=== PATIENT | male | born 1970 | race Caucasian/White ===

== ENCOUNTER 2022-11-02 16:23 | Inpatient (IN) | payer MEDICAID, OTHER ==
[~2022-11-02] VITALS: Ht 172.7 cm; Wt 68.0 kg
[2022-11-02 16:56] LABS: HEMATOCRIT 39.4 % (36.7-47.1); MEAN CORPUSCULAR HEMOGLOBIN 30.1 uug (23.8-33.4); MEAN CORPUSCULAR VOLUME 90.2 fL (73.0-96.2); PLATELET COUNT (AUTO) 212 K/uL (152-348)
[2022-11-02] MEDS ORDERED: ATOR40TA PO (17:02)
[2022-11-02] MEDS ORDERED: ASPI81TA31 PO (17:02)
[2022-11-02] MEDS ORDERED: PRAS10TA5 PO (17:02)
[2022-11-02 17:07] LABS: CARBON DIOXIDE 28 mmol/L (21-32); CHLORIDE 102 mmol/L (98-107); CREATININE 1.3 mg/dL (0.6-1.3); GLUCOSE 147 mg/dL (74-106); UREA NITROGEN, BLOOD 18 mg/dL (7-18)
[2022-11-02] MEDS ORDERED: ASPIRIN 81 MG TAB.CHEW PO ONE (18:15)
[2022-11-02] MEDS ORDERED: ASPIRIN 81 MG TAB.CHEW ONE (18:30)
[2022-11-02] MEDS ORDERED: TEMAZEPAM 15 MG CAPSULE PO PRN (20:15)
[2022-11-02] MEDS ORDERED: ONDANSETRON 4 MG/2 ML VIAL IV PRN (20:15)
[2022-11-02] MEDS ORDERED: ACETAMINOPHEN 325 MG TABLET PO PRN (20:15)
[2022-11-02] MEDS ORDERED: ATORVASTATIN 40 MG TABLET PO SCH (21:00)
[2022-11-03] VITALS: BP 139/91
[2022-11-03 04:46] VITALS: BP 121/77
[2022-11-03 05:56] LABS: HEMATOCRIT 37.7 % (36.7-47.1); MEAN CORPUSCULAR VOLUME 89.2 fL (73.0-96.2); PLATELET COUNT (AUTO) 193 K/uL (152-348)
[2022-11-03] MEDS ORDERED: PANTOPRAZOLE SODIUM 40 MG TABLET.DR PO SCH (07:00)
[2022-11-03 07:20] LABS: BILIRUBIN,TOTAL 0.6 mg/dL (0.2-1.0); CREATININE 1.1 mg/dL (0.6-1.3); POTASSIUM 3.8 mmol/L (3.5-5.1); TOTAL PROTEIN, SERUM 6.4 g/dL (6.4-8.2)
[2022-11-03 07:28] LABS: THYROID STIMULATING HORMONE 5.062 mIU/mL (0.358-3.740)
[2022-11-03 07:46] LABS: MAGNESIUM 2.1 mg/dL (1.8-2.4)
[2022-11-03] MEDS ORDERED: PRASUGREL HCL 5 MG TABLET PO SCH (09:00)
[2022-11-03] MEDS ORDERED: PRASUGREL HYDROCHLORIDE PO SCH (09:00)
[2022-11-03] MEDS ORDERED: ASPIRIN 81 MG TAB.CHEW PO SCH (09:00)
[2022-11-03 12:00] VITALS: BP 115/69
== END 2022-11-03 14:45 | disposition left against medical advice (07) | DRG 198 ==
LOC: ER 16:25 → TELE3 23:07
PROVIDERS: ADMIT Internal Medicine; ATTEND Nurse Practitioner Family
DX: I24.9 Acute ischemic heart disease, unspecified (principal); E78.5 Hyperlipidemia, unspecified; I25.10 Atherosclerotic heart disease of native coronary artery without angina pectoris; I25.2 Old myocardial infarction; Z95.5 Presence of coronary angioplasty implant and graft; R73.9 Hyperglycemia, unspecified; Z79.82 Long term (current) use of aspirin; Z79.899 Other long term (current) drug therapy; Z79.02 Long term (current) use of antithrombotics/antiplatelets; Z53.29 Procedure and treatment not carried out because of patient's decision for other reasons; Z87.891 Personal history of nicotine dependence
CPT/HCPCS: 36415; 71045; 83735; 84100; 84443; 84484; 85025; 93005; G0378

== ENCOUNTER 2022-12-20 20:05 | Emergency (ER) | payer MEDICAID ==
[~2022-12-20] VITALS: Ht 172.7 cm; Wt 70.3 kg
[~2022-12-20 20:05] MED LIST: ASPI81TA31 PO; ATOR40TA PO; PRAS10TA5 PO
[2022-12-20 20:16] VITALS: O2SAT 97
[2022-12-20 20:57] LABS: HEMATOCRIT 38.6 % (36.7-47.1); MEAN CORPUSCULAR VOLUME 89.5 fL (73.0-96.2); PLATELET COUNT (AUTO) 207 K/uL (152-348)
[2022-12-20 21:05] LABS: CARBON DIOXIDE 28 mmol/L (21-32); CHLORIDE 102 mmol/L (98-107); CREATININE 1.1 mg/dL (0.6-1.3); POTASSIUM 3.7 mmol/L (3.5-5.1); UREA NITROGEN, BLOOD 25 mg/dL (7-18)
--- NOTE | 2022-12-20 21:20 | NUR ---
[facility] at bedside.
--- NOTE | 2022-12-20 21:35 | NUR ---
SUKH remains at bedside Dr. at beside as well.
--- NOTE | 2022-12-20 21:36 | NUR ---
[facility] instructions given to pt. who verbalized understanding.
--- NOTE | 2022-12-20 21:37 | NUR ---
Pt. left room with steady gait. redness still visible to left side of shoulder and face. Pt. still with c/of burning. No other discomfort reported.
== END 2022-12-20 21:44 | disposition home or self-care (01) ==
LOC: ER 20:07
DX: R07.89 Other chest pain (principal); I25.2 Old myocardial infarction; Z79.82 Long term (current) use of aspirin; Z79.899 Other long term (current) drug therapy; Y04.2XXA Assault by strike against or bumped into by another person, initial encounter; Y93.89 Activity, other specified; Y92.89 Other specified places as the place of occurrence of the external cause; Y99.8 Other external cause status
CPT/HCPCS: 36415; 83735; 84484; 85025; 93005; A4663

== ENCOUNTER 2023-05-11 10:35 | Emergency (ER) | payer MEDICAID ==
[~2023-05-11] VITALS: Ht 172.7 cm; Wt 70.3 kg
[2023-05-11 10:49] VITALS: O2SAT 97
[2023-05-11 11:43] LABS: BASOPHILS # (AUTO) 0.1 K/UL (0.0-0.2); BASOPHILS % (AUTO) 0.5 % (0.0-2.0); EOSINOPHILS # (AUTO) 0.7 K/uL (0.0-0.7); EOSINOPHILS % (AUTO) 6.8 % (0.0-7.0); HEMATOCRIT 38.8 % (36.7-47.1); HEMOGLOBIN 13.1 g/dL (12.5-16.3); LYMPHOCYTES # (AUTO) 1.7 K/uL (0.8-4.8); LYMPHOCYTES % (AUTO) 17.1 % (20.5-51.5); MEAN CORPUSCULAR HEMOGLOBIN 30.1 uug (23.8-33.4); MEAN CORPUSCULAR HGB CONC 34 g/dL (32.5-36.3); MEAN CORPUSCULAR VOLUME 89.5 fL (73.0-96.2); MONOCYTES # (AUTO) 0.9 K/uL (0.1-1.30); MONOCYTES % (AUTO) 9.2 % (0.0-11.0); NEUTROPHILS # (AUTO) 6.7 K/uL (1.8-8.9); NEUTROPHILS % (AUTO) 66.4 % (38.5-71.5); PLATELET COUNT (AUTO) 186 K/uL (152-348); RED BLOOD CELL COUNT(AUTO) 4.33 MIL/uL (4.06-5.63); RED CELL DISTRIBUTION WIDTH 13.3 % (12.1-16.2); WHITE BLOOD COUNT (AUTO) 10.1 K/uL (3.6-10.2)
[2023-05-11 11:48] LABS: DIFFERENTIAL COMMENT 1
[2023-05-11 12:02] LABS: CALCIUM 9.5 mg/dL (8.5-10.1); CARBON DIOXIDE 28 mmol/L (21-32); CHLORIDE 103 mmol/L (98-107); CREATININE 1.1 mg/dL (0.6-1.3); GLUCOSE 117 mg/dL (74-106); POTASSIUM 3.8 mmol/L (3.5-5.1); SODIUM SERUM 140 mmol/L (136-145); UREA NITROGEN, BLOOD 15 mg/dL (7-18)
[2023-05-11 12:04] LABS: ALANINE AMINOTRANSFERASE 25 U/L (16-63); ALBUMIN 3.5 g/dL (3.4-5.0); ALKALINE PHOSPHATASE 117 U/L (50-136); ASPARTATE AMINOTRANSFERASE 23 U/L (15-37); BILIRUBIN,DIRECT 0.2 mg/dL (0.0-0.2); BILIRUBIN,TOTAL 0.5 mg/dL (0.2-1.0); NT-PRO BNP 59 pg/mL (0-125); TOTAL PROTEIN, SERUM 6.8 g/dL (6.4-8.2)
[2023-05-14] MEDS ORDERED: AZIT250T13 PO (10:12)
[2023-05-14] MEDS ORDERED: BENZ-13 PO (10:12)
== END 2023-05-11 13:09 | disposition home or self-care (01) ==
LOC: ER 10:35
DX: R07.89 Other chest pain (principal); J32.9 Chronic sinusitis, unspecified; I25.10 Atherosclerotic heart disease of native coronary artery without angina pectoris; E78.5 Hyperlipidemia, unspecified; Z79.82 Long term (current) use of aspirin; Z79.899 Other long term (current) drug therapy
CPT/HCPCS: 36415; 71045; 84484; 85025; 85730; 93005; A4606; A4663

== ENCOUNTER 2023-05-13 15:37 | Inpatient (IN) | payer MEDICAID ==
[~2023-05-13] VITALS: Ht 172.7 cm; Wt 79.4 kg
[2023-05-13 16:38] LABS: BASOPHILS # (AUTO) 0.1 K/UL (0.0-0.2); BASOPHILS % (AUTO) 0.7 % (0.0-2.0); EOSINOPHILS # (AUTO) 0.7 K/uL (0.0-0.7); EOSINOPHILS % (AUTO) 8.1 % (0.0-7.0); HEMATOCRIT 37.7 % (36.7-47.1); HEMOGLOBIN 12.7 g/dL (12.5-16.3); LYMPHOCYTES % (AUTO) 22.3 % (20.5-51.5); MEAN CORPUSCULAR HEMOGLOBIN 30.2 uug (23.8-33.4); MEAN CORPUSCULAR HGB CONC 34 g/dL (32.5-36.3); MEAN CORPUSCULAR VOLUME 89.5 fL (73.0-96.2); MONOCYTES # (AUTO) 0.9 K/uL (0.1-1.30); MONOCYTES % (AUTO) 10.5 % (0.0-11.0); NEUTROPHILS # (AUTO) 5.2 K/uL (1.8-8.9); NEUTROPHILS % (AUTO) 58.4 % (38.5-71.5); PLATELET COUNT (AUTO) 197 K/uL (152-348); RED BLOOD CELL COUNT(AUTO) 4.21 MIL/uL (4.06-5.63); RED CELL DISTRIBUTION WIDTH 13.2 % (12.1-16.2); WHITE BLOOD COUNT (AUTO) 8.9 K/uL (3.6-10.2)
[2023-05-13 16:39] LABS: DIFFERENTIAL COMMENT 1
[2023-05-13 16:46] LABS: CALCIUM 9.2 mg/dL (8.5-10.1); CREATININE 1.2 mg/dL (0.6-1.3); POTASSIUM 3.7 mmol/L (3.5-5.1)
[2023-05-13 17:02] LABS: ALBUMIN 3.4 g/dL (3.4-5.0); BILIRUBIN,DIRECT 0.1 mg/dL (0.0-0.2); BILIRUBIN,TOTAL 0.6 mg/dL (0.2-1.0); TOTAL PROTEIN, SERUM 7.1 g/dL (6.4-8.2)
[2023-05-13] MEDS ORDERED: ASPIRIN 81 MG TAB.CHEW ONE (17:43)
[2023-05-13] MEDS ORDERED: ASPIRIN 81 MG TAB.CHEW PO ONE (17:45)
[2023-05-13] MEDS ORDERED: ONDANSETRON 4 MG/2 ML VIAL IV PRN (21:00)
[2023-05-13] MEDS ORDERED: ACETAMINOPHEN 325 MG TABLET PO PRN (21:00)
[2023-05-13] MEDS ORDERED: ATORVASTATIN 40 MG TABLET PO SCH (21:15)
[2023-05-13 22:00] VITALS: BP 139/95; TEMP 98.5; O2SAT 98
[2023-05-14] MEDS: BENZONATATE 100 MG CAPSULE PO SCH ×2 (00:07→05:24)
[2023-05-14 00:14] VITALS: O2SAT 97
[2023-05-14 04:18] VITALS: BP 123/81; TEMP 98.8; O2SAT 96
[2023-05-14 07:08] LABS: BASOPHILS # (AUTO) 0.1 K/UL (0.0-0.2); BASOPHILS % (AUTO) 0.8 % (0.0-2.0); EOSINOPHILS # (AUTO) 0.8 K/uL (0.0-0.7); HEMATOCRIT 36.6 % (36.7-47.1); HEMOGLOBIN 12.4 g/dL (12.5-16.3); LYMPHOCYTES # (AUTO) 1.5 K/uL (0.8-4.8); LYMPHOCYTES % (AUTO) 15.6 % (20.5-51.5); MEAN CORPUSCULAR HGB CONC 34 g/dL (32.5-36.3); MONOCYTES # (AUTO) 0.9 K/uL (0.1-1.30); MONOCYTES % (AUTO) 9.5 % (0.0-11.0); NEUTROPHILS # (AUTO) 6.4 K/uL (1.8-8.9); NEUTROPHILS % (AUTO) 66.1 % (38.5-71.5); PLATELET COUNT (AUTO) 196 K/uL (152-348); RED BLOOD CELL COUNT(AUTO) 4.12 MIL/uL (4.06-5.63); WHITE BLOOD COUNT (AUTO) 9.6 K/uL (3.6-10.2)
[2023-05-14 07:19] LABS: DIFFERENTIAL COMMENT 1
[2023-05-14 07:23] LABS: CALCIUM 8.8 mg/dL (8.5-10.1); CREATININE 1.2 mg/dL (0.6-1.3); PHOSPHOROUS 2.8 mg/dL (2.5-4.9); POTASSIUM 3.6 mmol/L (3.5-5.1)
[2023-05-14] MEDS ORDERED: ASPIRIN 81 MG TAB.CHEW PO SCH (09:00)
[2023-05-14] MEDS ORDERED: AZIT250T13 PO (10:12)
[2023-05-14] MEDS ORDERED: BENZ-13 PO (10:12)
[2023-05-14] MEDS ORDERED: ATORVASTATIN 40 MG TABLET PO SCH (18:00)
== END 2023-05-14 10:50 | disposition home or self-care (01) | DRG 203 ==
LOC: ER 15:39 → TELE3 18:00
PROVIDERS: ADMIT Nurse Practitioner Acute Care; ATTEND Nurse Practitioner Acute Care
DX: M94.0 Chondrocostal junction syndrome [Tietze] (principal); E78.5 Hyperlipidemia, unspecified; I25.10 Atherosclerotic heart disease of native coronary artery without angina pectoris; Z95.5 Presence of coronary angioplasty implant and graft; J06.9 Acute upper respiratory infection, unspecified; I25.2 Old myocardial infarction; Z87.81 Personal history of (healed) traumatic fracture; Z79.82 Long term (current) use of aspirin; Z79.899 Other long term (current) drug therapy; Z79.02 Long term (current) use of antithrombotics/antiplatelets; Z98.890 Other specified postprocedural states
CPT/HCPCS: 36415; 83735; 84100; 84484; 85025; 93005; A4663; G0378

== ENCOUNTER 2024-06-21 23:44 | Emergency (ER) | payer MEDICAID ==
[~2024-06-21] VITALS: Ht 172.7 cm; Wt 72.6 kg
[~2024-06-21 23:44] MED LIST changes: +AZIT250T13 PO; +BENZ-13 PO; -PRAS10TA5 PO
[2024-06-22 00:04] LABS: BASOPHILS # (AUTO) 0.1 K/UL (0.0-0.2); BASOPHILS % (AUTO) 1.1 % (0.0-2.0); EOSINOPHILS # (AUTO) 0.9 K/uL (0.0-0.7); EOSINOPHILS % (AUTO) 10.1 % (0.0-7.0); HEMATOCRIT 32.3 % (36.7-47.1); HEMOGLOBIN 11.2 g/dL (12.5-16.3); LYMPHOCYTES # (AUTO) 2.2 K/uL (0.8-4.8); LYMPHOCYTES % (AUTO) 25.9 % (20.5-51.5); MEAN CORPUSCULAR HEMOGLOBIN 31.2 uug (23.8-33.4); MEAN CORPUSCULAR HGB CONC 35 g/dL (32.5-36.3); MEAN CORPUSCULAR VOLUME 89.8 fL (73.0-96.2); MONOCYTES # (AUTO) 0.8 K/uL (0.1-1.30); MONOCYTES % (AUTO) 9.1 % (0.0-11.0); NEUTROPHILS # (AUTO) 4.7 K/uL (1.8-8.9); NEUTROPHILS % (AUTO) 53.8 % (38.5-71.5); PLATELET COUNT (AUTO) 170 K/uL (152-348); RED CELL DISTRIBUTION WIDTH 12.8 % (12.1-16.2); WHITE BLOOD COUNT (AUTO) 8.7 K/uL (3.6-10.2)
[2024-06-22 00:10] LABS: DIFFERENTIAL COMMENT 1
[2024-06-22 00:15] LABS: CALCIUM 8.2 mg/dL (8.5-10.1); CREATININE 1.3 mg/dL (0.6-1.3); POTASSIUM 3.9 mmol/L (3.5-5.1)
[2024-06-22 00:28] LABS: BILIRUBIN,TOTAL 0.4 mg/dL (0.2-1.0); TOTAL PROTEIN, SERUM 6.9 g/dL (6.4-8.2)
[2024-06-22] MEDS ORDERED: IV NORMAL SALINE 250 ML IV ONE (00:39)
[2024-06-22] MEDS ORDERED: IOHEXOL 350 100 ML INFUS..BTL ONE (00:39)
[2024-06-22] MEDS ORDERED: SWABABLE VALVE TRANSFER SET EA MC ONE (00:39)
[2024-06-22] MEDS ORDERED: PRAS10TA9 PO (08:40)
[2024-06-22] MEDS ORDERED: MISCELLANEOUS MED PO ONE (09:00)
[2024-06-22] MEDS ORDERED: ASPIRIN 81 MG TAB.CHEW ONE (09:02)
[2024-06-22] MEDS: ASPIRIN 81 MG TAB.CHEW PO ONE (09:04)
[2024-06-22] MEDS: PRASUGREL HCL 5 MG TABLET PO ONE (09:18)
[2024-06-22 14:01] VITALS: O2SAT 96
== END 2024-06-22 14:28 | disposition short-term general hospital (02) ==
LOC: ER 23:47
DX: R07.89 Other chest pain (principal); E78.5 Hyperlipidemia, unspecified; I25.10 Atherosclerotic heart disease of native coronary artery without angina pectoris; I25.2 Old myocardial infarction; Z20.822 Contact with and (suspected) exposure to COVID-19; Z79.82 Long term (current) use of aspirin; Z95.5 Presence of coronary angioplasty implant and graft
CPT/HCPCS: 99285; 71045; 80053; 83880; 85025; 84484 ×2; 36415 ×2; 93005; 71275; 87426; Q9967; A4606; A4663